=== PATIENT | male | born 1960 | race Caucasian/White ===

== ENCOUNTER 2021-02-18 20:40 | Emergency (ER) | payer OTHER, SELFPAY ==
--- NOTE | ~2021-02-18 | CT_ITS ---
EXAMINATION: CTA chest PE protocol DATE: 02/18/2021 22:35 INDICATION: Shortness of breath TECHNIQUE: Computed tomography angiography (CTA) of the chest was performed with 100 mL Omnipaque-350 intravenous contrast timed to evaluate the pulmonary arteries. Coronal maximum intensity projection 3D-reconstructions were created by the technologist. The dose-length product (DLP) was 941.67 mGy-cm. Automated exposure control and iterative reconstruction technique were employed. COMPARISON: None. FINDINGS: There is fair opacification of the pulmonary arteries. Respiratory motion artifact limits e valuation of peripheral arteries. No pulmonary embolus is identified. There is mild dependent atelect asis. No pleural effusion or pneumothorax is identified. No pathologically enlarged thoracic lymph no ni are identified. The heart size is normal. There are bridging osteophytes at multiple levels in th e spine, consistent with diffuse idiopathic skeletal hyperostosis (DISH). IMPRESSION: 1. Fair opacification of the pulmonary arteries and limited evaluation of subsegmental branches due t o respiratory motion. No pulmonary embolus identified. Reviewed, dictated and finalized at location A. IMPRESSION: 1. Fair opacification of the pulmonary arteries and limited evaluation of subse gmental branches due to respiratory motion. No pulmonary embolus identified.
--- NOTE | ~2021-02-18 | XR_ITS ---
XR chest 1V portable DATE: 02/18/2021 21:20 INDICATION: Shortness of breath TECHNIQUE: Portable AP chest on 02/18/2021 at 2116 hours COMPARISON: None FINDINGS: Examination is limited. Heart size is not likely within normal range but optimally evaluated on AP projection because of magn ification. Mild atelectasis is suggested at the lung bases. The lungs are otherwise clear. No pleural effusion o r pulmonary vascular congestion or pneumothorax. IMPRESSION: Limited examination with suggestion of mild atelectasis at the lung bases Reviewed, dictated and finalized at location A.
[2021-02-18 20:40] VITALS: BP 125/64; PULSE 76; RESP 20; TEMP 37.1; O2SAT 95
--- NOTE | 2021-02-18 20:51 | ECG_ITS ---
Measurements Intervals [place] Rate: 74 P: MT: 0 QRS: 93 QRSD: 104 T: 83 QT: 401 QTc: 446 Interpretive Statements ATRIAL FIBRILLATION RIGHT AXIS DEVIATION INCOMPLETE RIGHT BUNDLE BRANCH BLOCK DELAYED PRECORDIAL R/S TRANSITION BASELINE ARTIFACT- I, II, III, AVR, AVL, AVF, V1-V6 ABNORMAL ECG Electronically Signed On 02-19-2021 19:27:46 CDT by Jak Alvarez D.O.
[2021-02-18 21:03] VITALS: PULSE 76
[2021-02-18 21:25] LABS: Basophils Absolute Auto 0.03 K/mm3 (0.00-0.10); Basophils Percent Auto 0.3 % (0.0-1.0); Eosinophils Absolute Auto 0.02 K/mm3 (0.02-0.50); Eosinophils Percent Auto 0.2 % (1.0-6.0); Hematocrit 46.1 % (40.0-54.0); Hemoglobin 14.7 g/dL (14.0-18.0); Immature Granulocyte Absolute 0.03 K/mm3 (0.00-0.00); Immature Granulocyte Percent A 0.3 % (0.0-0.0); Lymphocytes Absolute Auto 0.63 K/mm3 (1.10-4.50); Lymphocytes Percent Auto 7.1 % (18.0-42.0); Mean Corpuscular HGB Conc 31.9 g/dL (32.0-36.0); Mean Corpuscular Hemoglobin 29.9 pg (27.0-31.0); Mean Corpuscular Volume 93.9 fL (78.0-102.0); Mean Platelet Volume 9.7 fl (8.7-11.0); Monocytes Absolute Auto 0.86 K/mm3 (0.10-0.90); Monocytes Percent Auto 9.7 % (2.0-11.0); Neutrophils Absolute Auto 7.3 K/mm3 (1.7-7.2); Neutrophils Percent Auto 82.4 % (50.0-70.0); Platelet Count Result 189 K/mm3 (150-420); Red Blood Count 4.91 M/mm3 (4.70-6.10); Red Cell Distribution Width 13.9 % (11.6-14.4); White Blood Count 8.9 K/mm3 (4.8-10.8)
[2021-02-18 21:36] LABS: INR 1.3; Partial Thromboplastin Time 29.9 SEC (23.90-30.70); Prothrombin Time 13.7 Seconds (9.50-12.10)
[2021-02-18 21:40] LABS: Alanine Aminotransferase 527 U/L (16-63); Albumin Level 3.3 g/dL (3.4-5.0); Alkaline Phosphatase 184 U/L (46-116); Anion Gap 12 mmol/L (8-16); Aspartate Amino Transferase 235 U/L (15-37); Bilirubin,Total 4.8 mg/dL (0.00-1.00); Blood Urea Nitrogen 13 mg/dL (7-18); Calcium 8.3 mg/dL (8.5-10.1); Carbon Dioxide 29 mmol/L (21-32); Chloride 102 mmol/L (98-108); Glucose 128 mg/dL (70-99); NT Pro B Type Natriuretic Pept 1300 pg/mL (0-125); Osmolality Calculated 298 mOsm/kg (285-295); Potassium 3.5 mmol/L (3.5-5.1); Sodium 143 mmol/L (136-145); Troponin I 6.2 ng/L (0.00-60.4)
[2021-02-18 21:44] LABS: Influenza Control Valid (Valid)
[2021-02-18 21:45] LABS: Magnesium 1.6 mg/dL (1.8-2.4)
[2021-02-18 21:50] LABS: SARS-CoV-2 Ag Negative (Negative)
[2021-02-18 21:53] LABS: D Dimer 0.76 mg/L (0.19-0.50)
[2021-02-18 21:54] LABS: Total Protein 7.4 g/dL (6.4-8.2)
[2021-02-18 21:56] LABS: Estimated CRCL calculation 80 ml/min; Estimated Glomerular Filt Rate 53
--- NOTE | 2021-02-18 22:13 | ED.SOB ---
HPI - SOB/Dyspnea General Chief Complaint: Shortness of Breath/Dyspnea Stated Complaint: abd pain Source: patient Mode of arrival: EMS Limitations: no limitations History of Present Illness HPI Narrative: this is a 7-year-old gentleman that presents with some shortness of breath started earlier this evening with no cough has been having some low-grade fever and chills with no nausea vomiting no chest pain or chest pressure no abdominal pain, no flank pain or dysuria. Patient has a history of CHF and history of atrial fibrillation. Patient has a history of gallstones currently not having any abdominal pain. MD elicited complaint: shortness of breath Pertinent past history: congestive heart failure and other ( AFib) Onset (ago): hour(s) Severity: moderate Exacerbating factors: lying flat Related Data Home Medications Medication Instructions Recorded Confirmed Adult One Daily Multivitamin 1 caplet BYMOUTH DAILY 02/18/21 02/18/21 atorvastatin 10 mg PO DAILY 02/18/21 02/18/21 cholecalciferol (vitamin D3) 50 mcg PO DAILY 02/18/21 02/18/21 [Vitamin D3] furosemide 80 mg PO DAILY 02/18/21 02/18/21 omega-3 fatty acids-vitamin E 1 cap PO DAILY 02/18/21 02/18/21 [Fish Oil] potassium chloride 20 meq PO DAILY 02/18/21 02/18/21 rivaroxaban [Xarelto] 20 mg PO DAILY 02/18/21 02/18/21 verapamil 240 mg PO BID 02/18/21 02/18/21 Review of Systems Review of Systems: All systems reviewed & are unremarkable except as noted in HPI and below PMFSH Past Medical History Medical History Afib CHF (congestive heart failure) HTN (hypertension) Exam Const: General: no acute distress Orientation/consciousness: patient oriented x3 HENMT: Head: normal to inspection Eyes: Conjunctivae: conjunctivae normal Pupils: Equal, round and reactive pupils present EOM: EOMs intact bilaterally Neck: Neck: normal visual inspection, no lymphadenopathy and no meningeal signs Chest: Chest palpation & inspection: normal inspection of the chest Resp: Effort & Inspection: normal respiratory effort Auscultation: clear to auscultation bilaterally Cardio: Rate: regular rate Rhythm: abnormal rhythm GI: GI Palp: Yes Soft to palpation and Yes Tenderness to palpation present (GI) : Testes: Testes normal Back/Spine/Pelvis: Back: no CVA tenderness Skin: General skin exam: normal color Rashes: no rashes Neuro: General: patient oriented x3, moves all extremities, no meningeal signs and no focal motor deficits Extrem: General: normal to inspection and edema Psych: Mental Status: mental status grossly normal Affect: normal affect Course Course Emergency Course: x-ray and labs reviewed with patient Vital Signs Vital signs: Vital Signs Temperature 37.1 C 02/18/21 20:40 Pulse Rate 76 02/18/21 20:40 Respiratory Rate 20 02/18/21 20:40 Blood Pressure 125/64 02/18/21 20:40 Pulse Oximetry 95 02/18/21 20:40 Temperature 37.1 C 02/18/21 20:40 Pulse Rate 76 02/18/21 21:03 Respiratory Rate 02/18/21 20:40 Blood Pressure 125/64 02/18/21 20:40 Pulse Oximetry 95 02/18/21 20:40 MDM - SOB/Dyspnea Lab Data Result diagrams: 02/18/21 21:15 02/18/21 21:15 Labs: Lab Results 02/18/21 02/18/21 02/18/21 Range/Units 21:15 21:15 21:15 WBC 8.9 (4.8-10.8) K/mm3 RBC 4.91 (4.70-6.10) M/mm3 Hgb 14.7 (14.0-18.0) g/dL Hct 46.1 (40.0-54.0) % MCV 93.9 (78.0-102.0) fL MCH 29.9 (27.0-31.0) pg MCHC 31.9 L (32.0-36.0) g/dL RDW 13.9 (11.6-14.4) % Plt Count 189 (150-420) K/mm3 MPV 9.7 (8.7-11.0) fl Immature Gran % (Auto) 0.3 H (0.0-0.0) % Neut % (Auto) 82.4 H (50.0-70.0) % Lymph % (Auto) 7.1 L (18.0-42.0) % Brown % (Auto) 9.7 (2.0-11.0) % Eos % (Auto) 0.2 L (1.0-6.0) % Baso % (Auto) 0.3 (0.0-1.0) % Lymph # (Auto) 0.63 L (1.10-4.50) K/mm3 Brown # (Auto) 0.86
[2021-02-18 22:48] VITALS: BP 131/62; PULSE 68; RESP 20; O2SAT 95
[2021-02-18] MEDS: FUROSEMIDE INJ 40 MG/4 ML VIAL IV PUSH (23:00)
[2021-02-18 23:18] LABS: Add Urine Microscopic? YES; Appearance Urine Clear (Clear); Bilirubin Urine 1+ (Negative); Blood Urine Negative (Negative); Color Urine Yellow (Yellow); Glucose Urine UA Negative (Negative); Ketones Urine Negative (Negative); Leukocyte Esterase Ur Negative LEU/UL (Negative); Nitrate Urine Negative (Negative); Protein Urine Negative (Negative); Specific Grav Ur 1.015 (1.010-1.020); Urobilinogen Urine 0.2 mg/dL (0.2-1.0); pH Urine 5.5 (5.0-8.0)
[2021-02-18 23:23] LABS: RBC Urine None seen /hpf (0-2); WBC Urine None seen /hpf (0-3)
[2021-02-18 23:24] LABS: Squamous Epithelial Cell Urine None seen /hpf (Few)
[2021-02-19 00:07] VITALS: BP 151/86; PULSE 87; RESP 20; TEMP 36.9; O2SAT 92
[2021-02-19 00:59] VITALS: BP 144/76; PULSE 88; RESP 20; TEMP 36.9; O2SAT 94
--- NOTE | 2021-02-19 01:32 | PC.NURSE ---
called [facility] for transport back to residence. per smaantha unavailable to transport pt.
--- NOTE | 2021-02-19 01:57 | PC.NURSE ---
pt brother barrett returned call will be enroute to roller picker pt from [facility]. awaiting arrival
--- NOTE | 2021-02-19 02:56 | PC.NURSE ---
pt brother here for slat pickler. pt assisted into personal vehicle per this advertising writer. pt stable and alert. able to reposition self into truck.
== END 2021-02-19 01:20 | disposition home or self-care (01) ==
PROVIDERS: Emergency Provider Emergency Medicine
DX: I50.9 Heart failure, unspecified (principal); Z20.822 Contact with and (suspected) exposure to COVID-19
CPT/HCPCS: 36415; 71045; 71275; 80053; 81001; 83735; 83880; 84484; 85025; 85380; 85610; 85730; 87040; 87077; 87186; 87426; 87804; 93005; 96374; 99283; 99284; C9803; J1940; Q9967

== ENCOUNTER 2021-08-11 09:43 | Outpatient (CLI) | payer OTHER, SELFPAY ==
--- NOTE | ~2021-08-11 | XR_ITS ---
EXAMINATION: XR hand RT min 3V INDICATION: Right hand pain TECHNIQUE: Three views of the right hand are obtained. COMPARISON: None available FINDINGS: Bone alignment is normal. There is no fracture. There is mild osteoarthritis of multiple in terphalangeal joints and at the third metacarpophalangeal joint. The soft tissues are unremarkable. IMPRESSION: 1. Mild polyarticular osteoarthritis. Reviewed, dictated and finalized at location B. RNATIONAL MARKETING MANAGER
--- NOTE | ~2021-08-11 | XR_ITS ---
EXAMINATION: XR hand LT min 3V INDICATION: Left hand pain TECHNIQUE: Three views of the left hand are obtained. COMPARISON: None available FINDINGS: Bone alignment is normal. There is no fracture. There is mild osteoarthritis of multiple in terphalangeal joints. The soft tissues are unremarkable. IMPRESSION: 1. Mild polyarticular osteoarthritis. Reviewed, dictated and finalized at location B. UCT APPLICATIONS SCIENTIST
--- NOTE | ~2021-08-11 | XR_ITS ---
EXAMINATION: XR knee LT 3V DATE: 08/11/2021 10:34 INDICATION: Chronic left knee pain. TECHNIQUE: 3 views of left knee were obtained. COMPARISON: None. FINDINGS: There is lateral subluxation of patella. No fracture. There is severe osteoarthritis of med ial compartment, moderate osteoarthritis of patellofemoral compartment, and mild osteoarthritis of la teral compartment. No knee joint effusion. IMPRESSION: 1. Severe left knee osteoarthritis. Reviewed, dictated and finalized at location A. E BENDER FURNACE TENDER
--- NOTE | ~2021-08-11 | XR_ITS ---
EXAMINATION: XR knee RT 3V DATE: 08/11/2021 10:35 INDICATION: Chronic right knee pain. TECHNIQUE: 3 views of right knee were obtained. COMPARISON: None. FINDINGS: There is lateral subluxation of patella. No fracture. There is moderate osteoarthritis of m edial and patellofemoral compartments and mild osteoarthritis of lateral compartment. No knee joint e ffusion. IMPRESSION: 1. Moderate right knee osteoarthritis. Reviewed, dictated and finalized at location A. IANCE TECHNICIAN
[2021-08-11 10:53] LABS: Anion Gap 10 mmol/L (8-16); Blood Urea Nitrogen 20 mg/dL (7-18); Calcium 8.9 mg/dL (8.5-10.1); Carbon Dioxide 30 mmol/L (21-32); Chloride 104 mmol/L (98-108); Estimated Glomerular Filt Rate > 60; Glucose 117 mg/dL (70-99); Osmolality Calculated 301 mOsm/kg (285-295); Sodium 144 mmol/L (136-145)
== END 2021-08-11 09:44 | disposition home or self-care (01) ==
LOC: CHSLAB 09:47
PROVIDERS: PCP Nurse Practitioner; Visit Provider Internal Medicine Cardiovascular Disease
DX: Z79.899 Other long term (current) drug therapy (principal); M79.642 Pain in left hand; M79.641 Pain in right hand; M25.562 Pain in left knee; M25.561 Pain in right knee
CPT/HCPCS: 36415; 73130; 73562; 80048

== ENCOUNTER 2023-10-14 11:53 | Emergency (ER) | payer OTHER, SELFPAY ==
[2023-10-14 11:53] VITALS: BP 132/60; PULSE 76; RESP 18; TEMP 36.2; O2SAT 95
--- NOTE | 2023-10-14 12:50 | ED.GENADULT ---
HPI - General Adult General Chief complaint: Wound/Laceration Stated complaint: wound to right foot Time Seen by Provider: 10/14/23 12:15 History of Present Illness HPI narrative: The patient is a 63-year-old male with history of atrial fibrillation on Xarelto, congestive heart failure on Lasix 80 mg daily with chronic pedal edema and chronic venous stasis changes in the lower extremities, obesity weight 199 kg, hypertension, and hyperlipidemia. He is allergic to penicillin. He does not smoke cigarettes or use alcohol or drugs. The patient has had a right lower knight upper ankle wound that he has been dealing with for some time which has subsequently healed. He had a dressing on another wound on the right lower extremity, at the medial malleolus. The wound that healed. He was taken the dressing off and then the dorsum of the skin. He has some erythema in the area. No tenderness. No drainage from the wound. No other complaints. No fevers or chills or diaphoresis or rhinorrhea or nasal congestion or sore throat or chest pain or abdominal pain or nausea or vomiting or urinary symptoms such as urgency frequency dysuria or hematuria. No diarrhea or constipation. No other complaints. He is concerned about his wound and reduce requesting antibiotics to prevent a wound infection. Related Data Home Medications Medication Instructions Recorded Confirmed Adult One Daily Multivitamin 1 caplet BYMOUTH DAILY 02/18/21 10/14/23 atorvastatin 10 mg tablet 10 mg PO DAILY 02/18/21 10/14/23 cholecalciferol (vitamin D3) 50 50 mcg PO DAILY 02/18/21 10/14/23 mcg (2,000 unit) capsule (Vitamin D3) furosemide 80 mg tablet 80 mg PO DAILY 02/18/21 10/14/23 omega-3 fatty acids-vitamin E 1 cap PO DAILY 02/18/21 10/14/23 1,000 mg capsule potassium chloride 20 mEq 20 meq PO DAILY 02/18/21 10/14/23 tablet,extended release(part/cryst) rivaroxaban 20 mg tablet (Xarelto) 20 mg PO DAILY 02/18/21 10/14/23 verapamil 240 mg tablet,extended 240 mg PO BID 02/18/21 10/14/23 release losartan 50 mg tablet 50 mg DAILY 10/14/23 10/14/23 Allergies Allergy/AdvReac Type Severity Reaction Status Date / Time Penicillins Allergy Unknown Verified 10/14/23 12:04 Review of Systems Review of Systems: All systems reviewed & are unremarkable except as noted in HPI and below Constitutional: Constitutional: Denies chills, Denies excessive sweating, Denies fatigue, Denies fever(s), Denies headache(s) and Denies weakness Eyes: Eyes: Denies change in vision and Denies photophobia ENT: Denies dysphagia, Denies dizziness, Denies headache(s), Denies lip swelling, Denies nasal congestion, Denies sore throat and Denies tongue swelling Cardiovascular: Cardiovascular: Denies chest pain, Denies syncope, Denies rapid heart rate and Denies dyspnea Respiratory: Respiratory: Denies cough, Denies dyspnea and Denies wheezing Gastrointestinal: Gastrointestinal: Denies abdominal pain, Denies constipation, Denies dysphagia, Denies diarrhea, Denies nausea and Denies vomiting Genitourinary: Genitourinary: Denies hematuria, Denies dysuria, Denies urinary frequency and Denies urinary urgency Musculoskeletal: Musculoskeletal: Denies back pain, Denies myalgias, Denies arthralgias, Denies joint swelling and Denies numbness Comments: pedal edema with chronic venous stasis changes present Integumentary/Breasts: Skin/Breast: Denies pruritus, Reports erythema ( Right medial malleolus wound) and Denies rash Neurologic: Denies confusion, Denies dizziness, Denies syncope, Denies headache(s), Denies focal weakness, Denies numbness and Denies weakness Psychiatric: Psychiatric: Denies anxiety and Denies confusion Endocrine: Endocrine: Denies excessive sweating and Denies fatigue Hematologic/Lymphatic: Hematologic/Lymphatic: Denies easy bleeding and Denies easy bruising Allergic/Immunologic: Allergic/Immunologic: Denies lip swelling, Denies tongue swelling and Denies wheezing PM
[2023-10-14] MEDS: SULFAMETHOXAZOLE/TRIMETHOPRIM 800/160 MG DS TABLET 1 TAB PO (13:15)
[2023-10-14] MEDS: NEOMYCIN/POLYMYXIN/BACITRACIN OINTMENT 15 GM TUBE 1 APPLIC TOPICAL (13:16)
== END 2023-10-14 13:37 | disposition home or self-care (01) ==
PROVIDERS: Emergency Provider Emergency Medicine
DX: L03.115 Cellulitis of right lower limb (principal); L30.8 Other specified dermatitis; I87.2 Venous insufficiency (chronic) (peripheral); R60.9 Edema, unspecified; I48.91 Unspecified atrial fibrillation; Z79.01 Long term (current) use of anticoagulants; I50.9 Heart failure, unspecified; E66.9 Obesity, unspecified; Z68.44 Body mass index [BMI] 60.0-69.9, adult; E78.5 Hyperlipidemia, unspecified; I11.0 Hypertensive heart disease with heart failure
CPT/HCPCS: 99283; A9270

== ENCOUNTER 2024-10-07 09:10 | Emergency (ER) | payer OTHER, SELFPAY ==
[2024-10-07 09:10] VITALS: BP 141/89; PULSE 68; RESP 20; TEMP 36.3; O2SAT 98
--- NOTE | 2024-10-07 09:25 | ED.WOUNDLAC ---
HPI - Wound/Laceration General Chief Complaint: Wound/Laceration Stated Complaint: wound to right leg Time Seen by Provider: 10/07/24 09:25 Source: patient Mode of arrival: ambulatory Limitations: no limitations History of Present Illness HPI narrative: 64-year-old male with a history of dyslipidemia, elevated LFTs, CKD,hypertension, AFib, CHF, lymphedema and recurrent cellulitis presents to the ED with a 3 day history of -- right lateral like cellulitis. it is painful with minimal drainage. It started as a small sore . currently it is erythematous over in an area of 10 cmX 5 cm no fever or chills Onset (ago): day(s) ( 3 days) Extremity Location: Right: lower leg Body four view annotation:  1. 10 cms X 5 cms area of erythema/ tenderness with drainage from the center. The drainage is clear Place: home Context: other ( started spontaneously as a sore and gradually spread) Associated symptoms: pain Related Data Home Medications ?Medication ?Instructions ?Recorded ?Confirmed ?Last Taken ?Type Adult One Daily Multivitamin 1 caplet BYMOUTH DAILY 02/18/21 10/14/23 Unknown History atorvastatin 10 mg tablet 10 mg PO DAILY 02/18/21 10/14/23 Unknown History cholecalciferol (vitamin D3) 50 50 mcg PO DAILY 02/18/21 10/14/23 Unknown History mcg (2,000 unit) capsule (Vitamin D3) furosemide 80 mg tablet 80 mg PO DAILY 02/18/21 10/14/23 Unknown History omega-3 fatty acids-vitamin E 1 cap PO DAILY 02/18/21 10/14/23 Unknown History 1,000 mg capsule potassium chloride 20 mEq 20 meq PO DAILY 02/18/21 10/14/23 Unknown History tablet,extended release(part/cryst) rivaroxaban 20 mg tablet (Xarelto) 20 mg PO DAILY 02/18/21 10/14/23 Unknown History verapamil 240 mg tablet,extended 240 mg PO BID 02/18/21 10/14/23 Unknown History release losartan 50 mg tablet 50 mg DAILY 10/14/23 10/14/23 Unknown History Allergies Allergy/AdvReac Type Severity Reaction Status Date / Time Penicillins Allergy Unknown Verified 10/14/23 12:04 Review of Systems Constitutional: Constitutional: Reports as per HPI and Reports no additional constitutional complaints Eyes: Eyes: Reports as per HPI and Reports no additional eye complaints ENT: Reports system reviewed and no additional complaints, except as documented and Reports as per HPI Comments: hard of hearing Cardiovascular: Cardiovascular: Reports as per HPI and Reports no additional cardiovascular complaints Respiratory: Respiratory: Reports as per HPI and Reports no additional respiratory complaints Gastrointestinal: Gastrointestinal: Reports as per HPI and Reports no additional gastrointestinal complaints Genitourinary: Genitourinary: Reports no additional male genitourinary complaints and Reports as per HPI Musculoskeletal: Musculoskeletal: Reports no additional musculoskeletal complaints and Reports as per HPI Integumentary/Breasts: Comments: right lateral leg cellulitis Neurologic: Reports system reviewed and no additional complaints, except as documented and Reports as per HPI Psychiatric: Psychiatric: Reports no additional psychiatric complaints and Reports as per HPI Endocrine: Endocrine: Reports no additional endocrine complaints and Reports as per HPI Hematologic/Lymphatic: Hematologic/Lymphatic: Reports no additional hematologic/lymphatic complaints and Reports as per HPI Allergic/Immunologic: Allergic/Immunologic: Reports no additional allergic/immunologic complaints and Reports as per HPI [facility] Past Medical History Medical History HTN (hypertension) CHF (congestive heart failure) Afib Exam Narrative: afebrile Const: General: no acute distress Nutritional Appearance: obese Orientation/consciousness: patient oriented x3 Limitations: no limitations HENMT: Head: normal to inspection Ears: external ears normal Face/Nose/Sinus: Normal external nose present Face and sinus: normal facial exam Mouth: Yes Normal oral and palatal mucosa present Throat: posterior oropharynx normal Eyes: Conjunctivae: conjunctivae normal Pupils: Equal, round and reactive pupils present EOM: EOMs intact bilaterally Direct Ophthalmoscopy: no photophobia Neck: Neck: normal visual inspection, no lymphadenopathy and no meningeal signs Chest: Chest palpation & inspection: normal inspection of the chest Resp: Effort & Inspection: normal respiratory effort Auscultation: clear to auscultation bilaterally Cardio: Rate: regular rate Rhythm: regular rhythm GI: GI Palp: Yes Soft to palpation Auscultation: normal bowel sounds Other: no tenderness/rigidity /rebound Back/Spine/Pelvis: Back: no CVA tenderness Skin: General skin exam: normal color Other: right lateral leg has erythema measuring 10X5 cms . tender on palpation. Watery discharge from the center of erythema Neuro: General: patient oriented x3, moves all extremities, no meningeal signs, no focal motor deficits and CN's II-XI intact bilaterally Cranial nerves: Yes Nystagmus not present Speech: normal speech Extrem: Other: bilateral leg edema with lymphedema. Chronic venous stasis changes on both anterior legs. Psych: Mental Status: mental status grossly normal Affect: normal affect Attitude: cooperative Course Course Emergency Course: Lymphedema both lower extremities cellulitis right lateral leg-- blood work is unremarkable. Normal blood sugar. Normal white cell count. Vital Signs Vital signs: Vital Signs Temperature 36.3 C L 10/07/24 09:10 Pulse Rate 68 10/07/24 09:10 Respiratory Rate 20 10/07/24 09:10 Blood Pressure 141/89 H 10/07/24 09:10 Pulse Oximetry 98 10/07/24 09:10 Oxygen Delivery Room Air 10/07/24 09:10 Temperature 36.3 C L 10/07/24 09:10 Pulse Rate 80 10/07/24 09:35 Respiratory Rate 18 10/07/24 09:35 Blood Pressure 111/76 10/07/24 09:35 Pulse Oximetry 95 10/07/24 09:35 Oxygen Delivery Room Air 10/07/24 09:35 MDM - Wound/Laceration MDM Narrative Medical decision making narrative: Lymphedema both legs right leg cellulitis Differential Diagnosis Differential diagnosis: Likely abscess Medical Records Attestation: I reviewed the patient's medical records. Lab Data Attestation: I reviewed the patient's lab results. 10/07/24 09:42 10/07/24 09:42 Labs: Lab Results 10/07/24 Range/Units 09:42 WBC 6.7 (4.8-10.8) K/mm3 RBC 4.76 (4.70-6.10) M/mm3 Hgb 13.5 L (14.0-18.0) g/dL Hct 44.7 (40.0-54.0) % MCV 93.9 (78.0-102.0) fL MCH 28.4 (27.0-31.0) pg MCHC 30.2 L (32-36) g/dL RDW 13.7 (11.6-14.4) % Plt Count 123 L (150-420) K/mm3 MPV 10.5 (8.7-11.0) fl Immature Gran % (Auto) 0.5 H (0.0-0.0) % Neut % (Auto) 70.6 H (50.0-70.0) % Lymph % (Auto) 18.2 (18.0-42.0) % Lamar % (Auto) 8.4 (2.0-11.0) % Eos % (Auto) 1.7 (1.0-6.0) % Baso % (Auto) 0.6 (0.0-1.0) % Lymph # (Auto) 1.21 (1.10-4.50) K/mm3 Lamar # (Auto) 0.56 (0.10-0.90) K/mm3 Eos # (Auto) 0.11 (0.02-0.50) K/mm3 Baso # (Auto) 0.04 (0.00-0.10) K/mm3 Abs Immat Gran (auto) 0.03 H (0.00-0.00) K/mm3 Absolute Neuts (auto) 4.70 (1.70-7.20) K/mm3 Absolute Nucleated RBC 0.00 (0.00-0.00) K/mm3 Nucleated RBC % 0.0 (0-0.0) % % Immature Plt Fraction 10.2 H (1.0-7.0) % Sodium 140 (136-145) mmol/L Potassium 3.6 (3.5-5.1) mmol/L Chloride 102 (98-108) mmol/L Carbon Dioxide 31 (21-32) mmol/L Anion Gap 7 (4-12) mmol/L BUN 16 (7-18) mg/dL Creatinine 1.05 (0.70-1.30) mg/dL Estim Creat Clear Calc 104 ml/min Estimated GFR > 60 (59 - ) Glucose 125 H (70-99) mg/dL Calculated Osmolality 292 (285-295) mOsm/kg Lactic Acid 1.8 (0.4-2.0) mmol/L Calcium 9.0 (8.5-10.1) mg/dL Total Bilirubin 0.7 (0.00-1.00) mg/dL AST 15 (15-37) U/L ALT 19 (16-63) U/L Alkaline Phosphatase 74 (46-116) U/L NT-Pro-B Natriuret Pep 426 H (0-125) pg/mL Total Protein Pending Albumin 3.3 L (3.4-5.0) g/dL Discharge Plan Discharge Clinical Impression: Cellulitis Qualifiers: Site of cellulitis: extremity Site of cellulitis of extremity: lower extremity Laterality: right Qualified Code(s): L03.115 - Cellulitis of right lower limb Patient Disposition: Home Condition: Stable Instructions: Antibiotic Form, Cellulitis (ED) Patient Language: [place] Prescriptions: New sulfamethoxazole-trimethoprim [Bactrim DS] 800-160 mg tablet 1 tablet PO Q12H Qty: 14 0RF No Action losartan 50 mg tablet 50 mg DAILY sulfamethoxazole-trimethoprim [Bactrim DS] 800-160 mg tablet 1 tablet PO Q12H 10 Days Qty: 20 0RF Adult One Daily Multivitamin 1 caplet BYMOUTH DAILY atorvastatin 10 mg tablet 10 mg PO DAILY potassium chloride 20 mEq tablet,ER particles/crystals 20 meq PO DAILY furosemide 80 mg tablet 80 mg PO DAILY verapamil 240 mg tablet extended release 240 mg PO BID Fish Oil 1,000 mg Capsule 1 cap PO DAILY cholecalciferol (vitamin D3) [Vitamin D3] 50 mcg (2,000 unit) Capsule 50 mcg PO DAILY Xarelto 20 mg tablet 20 mg PO DAILY Follow-up/Referrals: UNKNOWN,DOCTOR [Primary Care Provider] - Time of Disposition: 10:44
[2024-10-07 09:35] VITALS: BP 111/76; PULSE 80; RESP 18; O2SAT 95
--- OUTSIDE RECORDS SUMMARY | 2024-10-07 09:38 | XMS_ITS | Encounter Summary ---
Author Organization [facility] Address [address] [place] [address] Care Team Providers Care Account Adjuster Name Role Phone Jen Good APRN, NP-C Unavailable [phone] Lola Brewer MD Unavailable Montana Richards NP Primary Care Provider [phone] Encounter Details Date Type Department Care Team (Late st Contact Info) Description 03/24/2024 Empowered Careers Message [facility] [address] [place] [address] [facility] Results Social History Tobacco Use Types Packs/Day Years Used Date Smoking Tobacco: Never Smokeless Tobacco: Never Alcohol Use Standard Drinks/Week Comments No 0 (1 standard drink = 0.6 oz pur e alcohol) OASIS D0700: Social Isolation Answer Da te Recorded Frequency of experiencing loneliness or isolatio n Never 09/20/2023 OASIS A1250: Transportation Answer Date Recorded Lack of Transportation (Medical) No 09/20/2023 Lack of Transportation (Non-Medical) No 09/20/2023 Patient Unable or Declines to Respond No 09/20/2023 OASIS B1300: Health Literacy Answer Rayo e Recorded Frequency of needing help to read materials from doctor or pharmacy Never 09/20/2023 AUDIT-C Answer Date Recorded Frequency of Alcohol Consumption Never 10/05/2019 Average Number of Drinks Not on file 020 Frequency of Binge Drinking Not on file 09/2019 Sex and Gender Information Value Date Recorded Sex Assigned at Not on file Legal Sex Male 8:47 PM CDT Gender Identity Male 07/24/2021 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 Sexual Orientation Not on file documented as of this encounter Plan of Treatment Not on file documented as of this encounter Visit Diagnoses Not on filedocumented in this encounter Care Teams Account Adjuster Relationship Specialty Start Date End Date Montana Richards, TUMBLING BARREL PAINTER [address] [place] [address] PCP - General NURSE PRACTITIONER 12/04/23 Jen Good, ETTA, TUMBLING BARREL PAINTER-C [address] [facility] [address] [place] [address] Advanced Practice Provider CARDIOLOGY 08/27/23 Lola Brewer MD [address] [place] [address] Consulting Physician CARDIOVASCULAR DISEASE 11/25/23 documented as of this encounter
--- OUTSIDE RECORDS SUMMARY | 2024-10-07 09:39 | XMS_ITS | Encounter Summary ---
Author Organization [facility] Address [address] [place] [address] Care Team Providers Care Open Shank Coverer Name Role Phone Doug Carrasco MD Primary Care Provider [phone] Gino Mena MD Unavailable [phone] Lisa Murillo BIOMETRICS INSTRUCTOR- Primary Care Provider [phone] Deysi Rosa NP Primary Care Provider [phone] Jen Good APRN, NP-C Unavailable [phone] Lola Brewer MD Unavailable Montana Richards POCKET FLAP CREASING MACHINE OPERATOR Primary Care Provider [phone] Encounter Details Date Type Department Care Team (Late st Contact Info) Description 01/25/2016 Abstract [facility] [address] [place] [address] Gino Mena MD [address] [place] [address] Social History Tobacco Use Types Packs/Day Years Used Date Smoking Tobacco: Never Sex and Gender Information Value Date Recorded Sex Assigned at Not on file Legal Sex Male 8:47 PM CDT Gender Identity Male 07/24/2021 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 Sexual Orientation Not on file documented as of this encounter Plan of Treatment Not on file documented as of this encounter Visit Diagnoses Not on filedocumented in this encounter Care Teams Open Shank Coverer Relationship Specialty Start Date End Date Doug Carrasco MD PCP - General INTERNAL MEDICINE 12/29/15 10/04/19 Lisa Murillo BIOMETRICS INSTRUCTOR- [address] [place] [address] PCP - General NURSE PRACTITIONER 10/05/19 08/26/23 Deysi Rosa NP [address] [facility] [address] [place] [phone] PCP - General NURSE PRACTITIONER 08/27/23 12/03/23 Montana Richards NP [address] [place] [address] PCP - General NURSE PRACTITIONER 12/04/23 Gino Mena MD [address] [place] [address] [facility] Provider CARDIOVASCULAR DISEASE 12/29/15 11/24/23 Jen Good, LABORER MINE, POCKET FLAP CREASING MACHINE OPERATOR-C [address] [facility] [address] [place] [phone] Advanced Practice Provider CARDIOLOGY 08/27/23 Lola Brewer MD [address] [place] [address] Consulting Physician CARDIOVASCULAR DISEASE 11/25/23 documented as of this encounter
--- OUTSIDE RECORDS SUMMARY | 2024-10-07 09:39 | XMS_ITS ---
Author Organization [facility] Address [address] [place] [address] Care Team Providers Care Cigar Packing Examiner Name Role Phone BRIGIDA YE Unavailable [phone] Encounters Encounter Location Date Provider Diagnosis [address] [address] 08/14/2024 BRIGIDA YE Plan Of Treatment No Information Progress Notes * MATTHEW HINDS ADOB:1960 (64 yo M)Acc No.[id number]:08/14/2024 Patient: Edmund LAVONMATTHEW Provider: Shelton Ye DPM :1960 A ge:64 Y S ex:Male Date:08/14/2024 Address:[facility] Subjective: * Chief Complaints: * * Medical History: Objective: * Vitals: Assessment: Plan: * Treatment: * Billing Information: * Visit Code: * Procedure Codes: * Electronic signature of MARKO YE DPM on 10/07/2024 at 09:39 AM CDT Sign off status: Pending * Provider: Shelton Ye DPM Date: 08/14/2024 Generated for Grayson holland/Darwin/Jose Alberto on: 10/07/2024 09:39 AM CDT
--- OUTSIDE RECORDS SUMMARY | 2024-10-07 09:39 | XMS_ITS | Encounter Summary ---
Author Organization [facility] Address [facility] [place] [address] Care Team Providers Care Baby Sitter Name Role Phone Doug Carrasco MD Primary Care Provider [phone] Gino Mena MD Unavailable [phone] Lisa Murillo MILLWRIGHT SUPERVISOR- Primary Care Provider [phone] Deysi Rosa NP Primary Care Provider [phone] Jen Good APRN, NP-C Unavailable [phone] Lola Brewer MD Unavailable Montana Richards MAMMOGRAPHY TECHNOLOGIST Primary Care Provider [phone] Encounter Details Date Type Department Care Team (Late st Contact Info) Description 12/27/2015 Abstract [facility] [address] [place] [address] Abstract, Doc [facility] Social History Tobacco Use Types Packs/Day Years Used Date Smoking Tobacco: Never Sex and Gender Information Value Date Recorded Sex Assigned at Not on file Legal Sex Male 8:47 PM CDT Gender Identity Male 07/24/2021 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 Sexual Orientation Not on file documented as of this encounter Plan of Treatment Not on file documented as of this encounter Visit Diagnoses Not on filedocumented in this encounter Care Teams Baby Sitter Relationship Specialty Start Date End Date Doug Carrasco MD PCP - General INTERNAL MEDICINE 12/29/15 10/04/19 Lisa Murillo FNP- [address] [place] [address] PCP - General NURSE PRACTITIONER 10/05/19 08/26/23 Deysi Rosa NP [address] [facility] [address] [place] [phone] PCP - General NURSE PRACTITIONER 08/27/23 12/03/23 Montana Richards NP [address] [place] [address] PCP - General NURSE PRACTITIONER 12/04/23 Gino Mena MD [address] [place] [phone] [place] Skip Hoist Operator CARDIOVASCULAR DISEASE 12/29/15 11/24/23 Jen Good APRN, MAMMOGRAPHY TECHNOLOGIST-C [address] [facility] [address] [place] [address] Advanced Practice Provider CARDIOLOGY 08/27/23 Lola Brewer MD [address] [place] [address] Consulting Physician CARDIOVASCULAR DISEASE 11/25/23 documented as of this encounter
--- OUTSIDE RECORDS SUMMARY | 2024-10-07 09:39 | XMS_ITS | Clinical Summary ---
Author Organization [facility] Address [address] [place] [address] Care Team Providers Care Floor Manager Name Role Phone Jen Good APRN, NP-C Unavailable [phone] Lola Brewer MD Unavailable Montana Richards NP Primary Care Provider [phone] Allergies Active Allergy Reactions Criticality Noted Date Comments Penicillins Unknown 12/01/2015 Solidago (Langley Nicolás) Unknown 12/27/2015 Medications verapamil 240 MG 24 hr capsuleIndicatio ns:Hypertension Take 1 tablet by mouth 2 (two) times a day. Indications: High Blood Pressure Disorder 4 Active atorvastatin 10 MG tabletIndication s:Hyperlipidemia Take 1 tablet (10 mg total) by mouth daily. 30 tablet 9 Active losartan 50 MG tabletIndication s:Hypertension Take 1 tablet (50 mg total) by mouth daily. 30 tablet 9 Active Multiple Vitamins-Mineral s (MULTIVITAMIN ADULTS OR)Indications:s upplement Take 1 tablet by mouth. Indications: supplement Active fish oil 1000 MG Cap capsuleIndicatio ns:heart health Take 1,000 mg by mouth daily. Indications: heart health Active FUROSEMIDE 80 MG tabletIndication s:Heart Failure TAKE ONE TABLET BY MOUTH DAILY 30 tablet 1 Active potassium chloride CR 20 MEQ tabletIndication s:supplement Take 1 tablet (20 mEq total) by mouth 2 (two) times daily. Indications: supplement Active Cholecalciferol (VITAMIN D) 50 MCG (1999) TabIndications:s upplement Take 1 tablet by mouth daily. Indications: supplement Active cephALEXin (KEFLEX) 500 MG capsuleIndicatio ns:Cellulitis Take 1 capsule by mouth 3 (three) times daily. Indications: Infection Under the Skin X 7 days 4 Active rivaroxaban (XARELTO) 20 MG Tab tabletIndication s:Atrial Fibrillation Take 1 tablet (20 mg total) by mouth daily with supper. Indications: Atrial Fibrillation Take with food 90 tablet 3 4 Active Active Problems Problem Noted Date Diagnosed Date Mixed hyperlipidemia 07/03/2018 Depression 07/03/2018 Chronic diastolic congestive heart failure ([facility]) 01/14/2016 Atrial fibrillation and flutter ([facility] ) 01/14/2016 Essential hypertension 01/14/2016 Obstructive sleep apnea syndrome 01/14/2016 Obesity 01/14/2016 Encounters Date Type Department Care Team Description 08/21/2024 Orders Only [facility] [address] [place] [address] Lola Brewer MD 08/21/2024 Orders Only [facility] [address] [place] [address] Lola Brewer MD from Last 3 Months Family History Medical History Relation Comments Coronary artery disease Brother Hypertension Mother Relation Status Comments Brother Alive Mother Social History Tobacco Use Types Packs/Day Years [...] CDT Gender Identity Male 07/24/2021 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 Sexual Orientation Not on file Last Filed Vital Signs Vital Sign Reading Time Taken Comments Blood Pressure 124/90 01/24/2024 2:57 PM CDT Pulse 90 01/24/2024 2:57 PM CDT Temperature 36.8 C (98.3 F) 09/20/2023 9:22 AM CDT Respiratory Rate 20 01/24/2024 2:57 PM CDT Oxygen Saturation 95% 01/24/2024 2:57 PM CDT Inhaled Oxygen Concentration - - Weight 202.3 kg (446 lb) 01/24/2024 2:57 PM CDT Height 172.7 cm (5' 8 ) 01/24/2024 2:57 PM CDT Body Mass Index 67.81 01/24/2024 2:57 PM CDT Plan of Treatment Health Maintenance Due Date Last Done Comments Colorectal Cancer Screening Colonoscopy (10 Years) 1960 Annual Physical 01/28/1964 Hepatitis C 1979 DTaP, Tdap and Td Vaccines ( 1 - Tdap) 01/28/1980 Pneumococcal Vaccine: 50+ Ye ars (1 of 2 - PCV) 01/28/1980 Zoster Vaccines (1 of 2) 2011 RSV Immunization or 60+ Years (1 - Risk 60-74 years 1-dose series) 2021 COVID-19 Vaccine (1 - 2023-2 5 season) 2024 Meningococcal B Vaccine Aged Out No l onger eligible based on patient's age to complete this topic Meningococcal Vaccine Aged Out No weston rashid eligible based on patient's age to complete this topic RSV Immunizations Under 20 Months Aged Out No longer eligible based on patient's age to complete this topic Insurance [employer]ET[employer] Advance Directives * Full Code (Latest Code Status on File) Date Activated Date Inactivated Comments 09/09/2023 11:19 AM * Full Code Date Activated Date Inactivated Comments 09/08/2023 3:02 PM 09/09/2023 11:05 AM Care Teams Floor Manager Relationship Specialty Start Date End Date Montana Richards FORMING PRESS OPERATOR [address] [place] [address] PCP - General NURSE PRACTITIONER 12/04/23 Jen Good, MACHINE BUILDER, FORMING PRESS OPERATOR-C [address] [facility] [address] [place] [address] Advanced Practice Provider CARDIOLOGY 08/27/23 Lola Brewer MD [address] [place] [address] Consulting Physician CARDIOVASCULAR DISEASE 11/25/23
--- OUTSIDE RECORDS SUMMARY | 2024-10-07 09:39 | XMS_ITS | Patient Health Record ---
Author Organization [facility] Address [address] [place] [address] Care Team Providers Care President Finance Company Name Role Phone BRIGIDA YE Unavailable [phone] Allergies No Known Allergies Reason For Referral No Information Medications Medication SIG (Take, Route, Frequency, Duration) Notes Start Date End Date Status Losartan Potassium 50 MG Oral for 30 Days Active Verapamil HCl ER 240 MG Oral for 30 Days Active Xarelto 20 MG Oral for 30 Days Active Furosemide 80 MG Oral for 30 Days Active Atorvastatin Calcium 10 MG Oral for 30 Days Active Potassium Chloride Heidi ER 20 MEQ Oral for 30 Days Active Social History Tobacco Use: Social History Observation Description Date Details (start date - stop date) Never Smoker NA - NA AUDIT-C (Standard) Question Answer Notes Did you have a drink contain ing alcohol in the past year? Yes How often did you have six o r more drinks on one occasion in the past year? Declined to specify (0 point) How many drinks did you have on a typical day when you were drinking in the past year? Declined to specify (0 point) How often did you have a dri nk containing alcohol in the past year? Declined to specify (0 point) Points 0 Interpretation Negative Tobacco Control (Standard) Question Answer Notes Tobacco use: Nonsmoker Problems Problem Type SNOMED Code ICD Code Onset Dates Problem Status W/U Status Risk Notes Problem Peripheral vascular disease (491871588) Other specified peripheral vascular diseases (I73.89) Active confirmed Vital Signs Heart Rate 106 /min 05/15/2024 Respiratory Rate 16 /min 05/15/2024 Height-cm 172.72 cm 05/15/2024 Blood pressure diastolic 71 mm Hg 05/15/2024 Weight-kg 184.16 kg 05/15/2024 Height 68 in 05/15/2024 Blood pressure systolic 150 mm Hg 05/15/2024 Weight 406 lbs 05/15/2024 BMI 61.73 kg/m2 05/15/2024 Encounters Encounter Location Date Provider Diagnosis [facility] [address] [place] [address] 05/15/2024 BRIGIDA YE Tinea unguium B35.1 and Other specified peripheral vascular diseases I73.89 Assessments Encounter Date Diagnosis (ICD Code) Assessment Notes Treatment Notes Treatment Clinical Notes Section Notes 05/15/2024 Tinea unguium (ICD-10 - B35.1) 05/15/2024 Other specified peripheral vascular diseases (ICD-10 - I73.89) We discussed preventative foot care. We discussed preventative foot hygiene. We instructed the patient on how to care for their feet, and to contact the office if any wounds develop, or signs of infection arise. The nails were debrided of all fungal material and debris. Debridement included a reduction in bulk of the nail by use of a sharp abrasive water jet cutter operator and/or rotary instrument. Reason for debridement include relief of pain, treatment of infection, temporary removal of an anatomic deformity such as onychauxis or onychocryptosis, exposure of subungual conditions for the purpose of treatment as well as diagnosis, and/or as a prophylactic measure to prevent further problems, such as subungual ulceration in an insensate patient with onychauxis. Antiseptic was applied. Debrided 10 nails. We reviewed fungal nail and skin infections. We discussed the prognosis and treatment options. We discouraged topical therapy with due to low success rate. We discussed oral medications and potential side effects such as liver and/or kidney toxicity. We discussed the need to take the medication for nine to twelve months. We discussed rate of recurrence after treatment. We also discussed the option of observation. Will treat conservatively at this time considering his comorbidities. Plan Of Treatment No Information Insurance Providers Payer Name Payer Address Payer Phone Subscriber Number Group Number Insured Name Patient Relationship to Insured Coverage Start Date Coverage End Date AETNA [facility] [address] [address] [facility] [place] [address] [id number] MATTHEW HINDS Self - patient is the insured Medical (General) History Medical History History ICD Code Hypertension Hyperlipidemia Arthritis
--- OUTSIDE RECORDS SUMMARY | 2024-10-07 09:40 | XMS_ITS ---
Author Organization [facility] Address [address] [place] [address] Care Team Providers Care Ironer Machine Name Role Phone BRIGIDA YE Unavailable [phone] Allergies No Known Allergies REASON FOR VISIT Palliation Medications Medication SIG (Take, Route, Frequency, Duration) Notes Start Date End Date Status Losartan Potassium 50 MG Oral for 30 Days Active Verapamil HCl ER 240 MG Oral for 30 Days Active Xarelto 20 MG Oral for 30 Days Active Furosemide 80 MG Oral for 30 Days Active Potassium Chloride Heidi ER 20 MEQ Oral for 30 Days Active Atorvastatin Calcium 10 MG Oral for 30 Days Active Social History [...] Status Risk Notes Problem Peripheral vascular disease (620533566) Other specified peripheral vascular diseases (I73.89) Active confirmed Vital Signs Blood pressure systolic 150 mm Hg 05/15/20 24 Blood pressure diastolic 71 mm Hg 024 Heart Rate 106 /min 05/15/2024 Respiratory Rate 16 /min 05/15/2024 Height 68 in 05/15/2024 Weight 406 lbs 05/15/2024 BMI 61.73 kg/m2 05/15/2024 Height-cm 172.72 cm 05/15/2024 Weight-kg 184.16 kg 05/15/2024 Encounters Encounter Location Date Provider Diagnosis [facility] [address] [place] [address] 05/15/2024 BRIGIDA YE Tinea unguium B35.1 and [...] the nail by use of a sharp damage cutter and/or rotary instrument. Reason for debridement include [...] time considering his comorbidities. Plan Of Treatment Treatment Notes Assessment Notes Other specified peripheral v ascular diseases We discussed preventative foot care. We discussed preventative foot hygiene. We instructed the patient on how to care for their feet, and to contact the office if any wounds develop, or signs of infection arise. The nails were debrided of all fungal material and debris. Debridement included a reduction in bulk of the nail by use of a sharp damage cutter and/or rotary instrument. Reason for debridement include [...] conservatively at this time considering his comorbidities. Next Appt Details Follow Up: 2 Months, Reason: palliation Progress Notes * MATTHEW HINDS ADOB:1960 (64 yo M)Acc No.[id number]:05/15/2024 Progress Notes Patient: MATTHEW AMARO Provider: Shelton Ye DPM :1960 A ge:64 Y S ex:Male Date:05/15/2024 Address:[address] [place], [place] [id number] Subjective: * Chief Complaints: * P alliation * HPI: N ails: The patient relates t o having difficulty trimming their nails, that all of their nails are thickened, that all of their nails are discolored. Relates his toenails are thick. Relates they have been that way for over a year. Denies much pain with them, except sometimes in shoes. * ROS: G eneral / Constitutional: Patient denies c hills, fatigue, fever, headache. ? E NT: Patient denies s ore throat, sinus pain. R espiratory: Patient denies c ough, chest pain, shortness of breath.? C ardiovascular: Patient denies p alpitations, chest pain with exertion.? G astrointestinal: Patient denies a bdominal pain, constipation, diarrhea, vomiting, nausea. * Medical History: * Surgical History: * Hospitalization/Major Diagno stic Procedure: * Social History: T obacco Use: T obacco Control (Standard) T obacco use: N onsmoker. D rug/Alcohol: D rugs H ave you used drugs other than those for medical reasons in the past 12 months??No. A VANIA-C (Standard) D id you have a drink containing alcohol in the past year? Y es, H ow often did you have six or more drinks on one occasion in the past year? D eclined to specify (0 point), H ow many drinks did you have on a typical day when you were drinking in the past year? D eclined to specify (0 point), H ow often did you have a drink containing alcohol in the past year? D eclined to specify (0 point), P oints 0 , I nterpretation?Negative. * Medications: T akingLosartan Potassium 50 MG Tablet Oral Atorvastatin Calcium 10 MG Tablet Oral Furosemide 80 MG Tablet Oral Xarelto 20 MG Tablet Oral Verapamil HCl ER 240 MG Tablet Extended Release Oral Potassium Chloride Heidi ER 20 MEQ Tablet Extended Release Oral Medication List reviewed and reconciled with the patientTaking Losartan Potassium 50 MG Tablet Oral Taking Atorvastatin Calcium 10 MG Tablet Oral Taking Furosemide 80 MG Tablet Oral Taking Xarelto 20 MG Tablet Oral Taking Verapamil HCl ER 240 MG Tablet Extended Release Oral Taking Potassium Chloride Heidi ER 20 MEQ Tablet Extended Release Oral Medication List reviewed and reconciled with the patient * Allergies: N .K.D.A.no[Allergies Verified] Objective: * Vitals: H t: 68 in, Wt:406lbs, BP:150/71mm Hg, HR:106/min, BMI:61.73Index, RR:16/min, Wt- k.16 kg, Ht-cm: 172.72 cm, Body Surface Area: 2.97. * Examination: D ermatologic: Skin findings: b ilateral, cool and dry, no open ulcerations or interdigital macerations. Edema m oderate, generalized. Nail pathology: d igits 1-5, bilateral, discolored, thickened, with onychodystrophy, with subungual debris. V ascular: Dorsalis pedis pulse: 1 /4, bilateral. Posterior tibial pulse: 0 /4, bilateral. Capillary refill: s lightly delayed, bilaterally. ? N eurologic: Gross sensation i ntact. C lass Findings: Class B findings (Q8) A bsent posterior tibial pulse right, Absent posterior tibial pulse left, Hair decreased or absent, Skin pigment discoloration, Nail thickening. M usculoskeletal: Joint range of motion: b ilateral, ankle, with decreased range of motion. Pain elicited with palpation of: n o noted pain on palpation. Pain elicited with range of motion: n o noted pain with range of motion. Assessment: * Assessment: 1. O ther specified peripheral vascular diseases - I73.89 (Primary) 2 . T inea unguium - B35.1 Plan: * Treatment: * Procedure Codes: 1 1721 DEBRIDE NAIL, 6 OR MORE, Modifiers: Q8 * Follow Up: 2 Months (Reason: palliation) * Billing Information: * Visit Code: 12432 Office Visit, New Pt., Level 2. Modifiers: 25 * Procedure Codes: 92330 DEBRIDE NAIL, 6 OR MORE. Modifiers: Q8 * RER LIVESTOCK Sign off status: Completed true * Provider: Shelton Ye DPM Date: 07/16/2023 Generated for Grayson holland/Darwin/Jose Alberto on: 0 10/07/2024 09:39 AM CDT History and Physical Notes * HPI (History of Present Illness) Category Sub-Category Detail Notes Category Not es Nails The patient relates to having di fficulty trimming their nails, that all of their nails are thickened, that all of their nails are discolored Relates his toenails are thick. Relates they have been that way for over a year. Denies much pain with them, except sometimes in shoes. Examination Category Sub-Category Detail Notes Category Not es Dermatologic Skin findings: bilateral, cool and dry, no open ulcerations or interdigital macerations Nail pathology: digits 1-5, bilatera l, discolored, thickened, with onychodystrophy, with subungual debris Edema moderate, generalize d Neurologic Gross sensation intact Musculoskeletal Joint range of motion: bilateral , ankle, with decreased range of motion Pain elicited with palpation of: no note d pain on palpation Pain elicited with range of motion: no n oted pain with range of motion Vascular Dorsalis pedis pulse: 1/4, bilateral Capillary refill: slightly delayed, bi laterally Posterior tibial pulse: 0/4, bilateral Class Findings Class B findings (Q8) Absent pos terior tibial pulse right, Absent posterior tibial pulse left, Hair decreased or absent, Skin pigment discoloration, Nail thickening
[2024-10-07 09:55] LABS: Basophils Absolute Auto 0.04 K/mm3 (0.00-0.10); Basophils Percent Auto 0.6 % (0.0-1.0); Eosinophils Absolute Auto 0.11 K/mm3 (0.02-0.50); Eosinophils Percent Auto 1.7 % (1.0-6.0); Hematocrit 44.7 % (40.0-54.0); Hemoglobin 13.5 g/dL (14.0-18.0); Immature Granulocyte Absolute 0.03 K/mm3 (0.00-0.00); Immature Granulocyte Percent A 0.5 % (0.0-0.0); Lymphocytes Absolute Auto 1.21 K/mm3 (1.10-4.50); Lymphocytes Percent Auto 18.2 % (18.0-42.0); Mean Corpuscular HGB Conc 30.2 g/dL (32-36); Mean Corpuscular Hemoglobin 28.4 pg (27.0-31.0); Mean Corpuscular Volume 93.9 fL (78.0-102.0); Mean Platelet Volume 10.5 fl (8.7-11.0); Monocytes Absolute Auto 0.56 K/mm3 (0.10-0.90); Monocytes Percent Auto 8.4 % (2.0-11.0); Neutrophils Percent Auto 70.6 % (50.0-70.0); Red Blood Count 4.76 M/mm3 (4.70-6.10); Red Cell Distribution Width 13.7 % (11.6-14.4); White Blood Count 6.7 K/mm3 (4.8-10.8)
[2024-10-07 10:14] LABS: Lactic Acid Reflex 1.8 mmol/L (0.4-2.0)
[2024-10-07 10:19] LABS: Immature Platelet Fraction Pct 10.2 % (1.0-7.0); Platelet Count Result 123 K/mm3 (150-420)
[2024-10-07 10:22] LABS: Alanine Aminotransferase 19 U/L (16-63); Albumin Level 3.3 g/dL (3.4-5.0); Alkaline Phosphatase 74 U/L (46-116); Anion Gap 7 mmol/L (4-12); Aspartate Amino Transferase 15 U/L (15-37); Bilirubin,Total 0.7 mg/dL (0.00-1.00); Blood Urea Nitrogen 16 mg/dL (7-18); Carbon Dioxide 31 mmol/L (21-32); Chloride 102 mmol/L (98-108); Estimated CRCL calculation 104 ml/min; Estimated Glomerular Filt Rate > 60; Glucose 125 mg/dL (70-99); NT Pro B Type Natriuretic Pept 426 pg/mL (0-125); Osmolality Calculated 292 mOsm/kg (285-295); Potassium 3.6 mmol/L (3.5-5.1); Sodium 140 mmol/L (136-145)
--- OUTSIDE RECORDS SUMMARY | 2024-10-07 10:31 | XMS_ITS | Encounter Summary ---
Author Organization [facility] Address [facility] [place] [address] Care Team Providers Care Economics Faculty Member Name Role Phone Doug Carrasco MD Primary Care Provider [phone] Gino Mena MD Unavailable [phone] Lisa Murillo GLASSWORKER- Primary Care Provider [phone] Deysi Rosa NP Primary Care Provider [phone] Jen Good APRN, NP-C Unavailable [phone] Lola Brewer MD Unavailable Montana Richards DIRECTOR CONTENT MARKETING Primary Care Provider [phone] Encounter Details Date Type Department Care Team (Late st Contact Info) Description 12/27/2015 Abstract [facility] [address] [place] [address] Abstract, Doc [facility] Social History Tobacco Use Types Packs/Day Years Used Date Smoking Tobacco: Never Sex and Gender Information Value Date Recorded Sex Assigned at Not on file Legal Sex Male 8:47 PM CDT Gender Identity Male 07/24/2021 4:54 AM HARNESS CLEANER Sexual Orientation Not on file documented as of this encounter Plan of Treatment Not on file documented as of this encounter Visit Diagnoses Not on filedocumented in this encounter Care Teams Economics Faculty Member Relationship Specialty Start Date End Date Doug Carrasco MD PCP - General INTERNAL MEDICINE 12/29/15 10/04/19 Lisa Murillo FNP- [address] [place] [address] PCP - General NURSE PRACTITIONER 10/05/19 08/26/23 Deysi Rosa NP 109 [facility] 3 [place] [address] PCP - General NURSE PRACTITIONER 08/27/23 12/03/23 Montana Richards NP [address] [place] [address] PCP - General NURSE PRACTITIONER 12/04/23 Gino Mena MD [address] [place] [address] [place] Histologic Technician CARDIOVASCULAR DISEASE 12/29/15 11/24/23 Jen Good APRN, DIRECTOR CONTENT MARKETING-C 619 [facility] [address] [place] [address] Advanced Practice Provider CARDIOLOGY 08/27/23 Lola Brewer MD [address] [place] [address] Consulting Physician CARDIOVASCULAR DISEASE 11/25/23 documented as of this encounter
--- OUTSIDE RECORDS SUMMARY | 2024-10-07 10:31 | XMS_ITS | Encounter Summary ---
Author Organization [facility] Address [address] [place] [address] Care Team Providers Care Dust Mixer Name Role Phone Doug Carrasco MD Primary Care Provider [phone] Gino Mena MD Unavailable [phone] Lisa Murillo CERTIFIED EXECUTIVE CHEF- Primary Care Provider [phone] Deysi Rosa NP Primary Care Provider [phone] Jen Good APRN, NP-C Unavailable [phone] Lola Brewer MD Unavailable Montana Richards TILE SORTER Primary Care Provider [phone] Encounter Details Date Type Department Care Team (Late st Contact Info) Description 01/25/2016 Abstract [facility] [address] [place] [address] Gino Mena MD [address] [place] [address] Social History Tobacco Use Types Packs/Day Years Used Date Smoking Tobacco: Never Sex and Gender Information Value Date Recorded Sex Assigned at Not on file Legal Sex Male 8:47 PM CDT Gender Identity Male 07/24/2021 4:54 AM THERAPIST RADIATION Sexual Orientation Not on file documented as of this encounter Plan of Treatment Not on file documented as of this encounter Visit Diagnoses Not on filedocumented in this encounter Care Teams Dust Mixer Relationship Specialty Start Date End Date Doug Carrasco MD PCP - General INTERNAL MEDICINE 12/29/15 10/04/19 Lisa Murillo CERTIFIED EXECUTIVE CHEF- [address] [place] [address] PCP - General NURSE PRACTITIONER 10/05/19 08/26/23 Deysi Rosa NP 109 [address] [facility] 3 [place] [address] PCP - General NURSE PRACTITIONER 08/27/23 12/03/23 Montana Richards NP [address] [place] [address] PCP - General NURSE PRACTITIONER 12/04/23 Gino Mena MD [address] [place] [address] [place] Driver Recruiter CARDIOVASCULAR DISEASE 12/29/15 11/24/23 Jen Good, CHILD CARE TEAM LEAD, TILE SORTER-C 619 [facility] [address] [place] [address] Advanced Practice Provider CARDIOLOGY 08/27/23 Lola Brewer MD [address] [place] [address] Consulting Physician CARDIOVASCULAR DISEASE 11/25/23 documented as of this encounter
--- OUTSIDE RECORDS SUMMARY | 2024-10-07 10:31 | XMS_ITS | Encounter Summary ---
Author Organization [facility] Address [address] [place] [address] Care Team Providers Care Pmo Project Manager Name Role Phone Jen Good APRN, NP-C Unavailable [phone] Lola Brewer MD Unavailable Montana Richards NP Primary Care Provider [phone] Encounter Details Date Type Department Care Team (Late st Contact Info) Description 03/24/2024 [place] Message [facility] ield [address] [place] [address] [facility] Results Social History Tobacco Use [...] CDT Gender Identity Male 07/24/2021 4:54 AM ALLOPATHIC DOCTOR Sexual Orientation Not on file documented as of this encounter Plan of Treatment Not on file documented as of this encounter Visit Diagnoses Not on filedocumented in this encounter Care Teams Pmo Project Manager Relationship Specialty Start Date End Date Montana Richards, FOIL STAMP OPERATOR [address] [place] [address] PCP - General NURSE PRACTITIONER 12/04/23 Jen Good, ETTA, FOIL STAMP OPERATOR-C [address] [facility] [address] [place] [address] Advanced Practice Provider CARDIOLOGY 08/27/23 Lola Brewer MD [address] [place] [address] Consulting Physician CARDIOVASCULAR DISEASE 11/25/23 documented as of this encounter
--- OUTSIDE RECORDS SUMMARY | 2024-10-07 10:31 | XMS_ITS | Clinical Summary ---
Author Organization [facility] Address [address] [place] [address] Care Team Providers Care Tire Fabric Impregnating Range Tender Name Role Phone Jen Good APRN, NP-C Unavailable [phone] Lola Brewer MD Unavailable Montana Richards NP Primary Care Provider [phone] Allergies Active Allergy Reactions Criticality Noted Date [...] Depression 07/03/2018 Chronic diastolic congestive heart failure ([facility]) 01/14/2016 Atrial fibrillation and flutter ([facility] ) 01/14/2016 Essential hypertension 01/14/2016 Obstructive sleep apnea syndrome 01/14/2016 Obesity 01/14/2016 Encounters Date Type Department Care Team Description 08/21/2024 Orders Only [facility] [address] [place] [address] Lola Brewer MD 08/21/2024 Orders Only [facility] [address] [place] [address] Lola Brewer MD from Last 3 Months [...] CDT Gender Identity Male 07/24/2021 4:54 AM [place] FLOOR LAYER Sexual Orientation Not on file Last Filed [...] 3:02 PM 09/09/2023 11:05 AM Care Teams Tire Fabric Impregnating Range Tender Relationship Specialty Start Date End Date Montana Richards SAVINGS TELLER [address] [place] [address] PCP - General NURSE PRACTITIONER 12/04/23 Jen Good, GRAVEL HAULER, SAVINGS TELLER-C 619 [facility] [address] [place] [address] Advanced Practice Provider CARDIOLOGY 08/27/23 Lola Brewer MD [address] [place] [address] Consulting Physician CARDIOVASCULAR DISEASE 11/25/23
[2024-10-07 11:01] LABS: Total Protein 7.1 g/dL (6.4-8.2)
--- NOTE | 2024-10-09 17:15 | PC.NURSE ---
blood preliminary, no growth
== END 2024-10-07 10:58 | disposition home or self-care (01) ==
PROVIDERS: Emergency Provider Internal Medicine Critical Care Medicine
DX: L03.115 Cellulitis of right lower limb (principal); I13.0 Hypertensive heart and chronic kidney disease with heart failure and stage 1 through stage 4 chronic kidney disease, or unspecified chronic kidney disease; N18.9 Chronic kidney disease, unspecified; I50.9 Heart failure, unspecified; I48.91 Unspecified atrial fibrillation
CPT/HCPCS: 36415; 80053; 83605; 83880; 85025; 85055; 87040; 99283

== ENCOUNTER 2025-01-18 09:09 | Outpatient (CLI) | payer OTHER, SELFPAY ==
--- OUTSIDE RECORDS SUMMARY | 2025-01-18 09:39 | XMS_ITS ---
Author Organization [facility] Address [address] [place] [address] Care Team Providers Care Shoe Salesperson Name Role Phone BRIGIDA YE Unavailable [phone] Encounters Encounter Location Date Provider Diagnosis [address] [address] 08/14/2024 BRIGIDA YE Plan Of Treatment No Information Progress Notes * MATTHEW HINDS ADOB:1960 (64 yo M)Acc No.[id number]:08/14/2024 Patient: Edmund LAVONMATTHEW Provider: Shelton Ye DPM :1960 A ge:64 Y S ex:Male Date:08/14/2024 Address:[address] [facility] Subjective: * Chief Complaints: * * Medical History: Objective: * Vitals: Assessment: Plan: * Treatment: * Billing Information: * Visit Code: * Procedure Codes: * Electronic signature of MARKO YE DPM on 01/18/2025 at 09:39 AM CDT Sign off status: Pending * Provider: Shelton Ye DPM Date: 08/14/2024 Generated for Grayson holland/Darwin/Jose Alberto on: 01/18/2025 09:39 AM CDT
--- OUTSIDE RECORDS SUMMARY | 2025-01-18 09:39 | XMS_ITS | Patient Health Record ---
Author Organization [facility] Address [address] [place] [address] Care Team Providers Care Collection Systems Worker Name Role Phone BRIGIDA YE Unavailable [phone] Allergies No Known Allergies Reason For Referral No Information Medications Medication SIG (Take, Route, Frequency, Duration) Notes Start Date End Date Status Losartan Potassium 50 MG Oral; Duration: 30 Days Active Verapamil HCl ER 240 MG Oral; Duration: 30 Days Active Xarelto 20 MG Oral; Duration: 30 Days Active Furosemide 80 MG Oral; Duration: 30 Days Active Atorvastatin Calcium 10 MG Oral; Duration: 30 Days Active Potassium Chloride Heidi ER 20 MEQ Oral; Duration: 30 Days Acti ve Social History Tobacco Use: Social History Observation [...] Status Risk Notes Problem Peripheral vascular disease (072697560) Other specified peripheral vascular diseases (I73.89) Active confirmed Vital Signs Heart Rate 106 /min 05/15/2024 Respiratory Rate 16 /min 05/15/2024 Height-cm 172.72 cm 05/15/2024 Blood pressure diastolic 71 mm Hg 05/15/2024 Weight-kg 184.16 kg 05/15/2024 Height 68 in 05/15/2024 Blood pressure systolic 150 mm Hg 05/15/2024 Weight 406 lbs 05/15/2024 BMI 61.73 kg/m2 05/15/2024 Encounters Encounter Location Date Provider Diagnosis [facility] [address] [place] [address] 05/15/2024 BRIGIDA YE Tinea unguium B35.1 and [...] the nail by use of a sharp upper leather cutter and/or rotary instrument. Reason for debridement [...] Coverage Start Date Coverage End Date AETNA [facility] [address] [address] [place], [place] [id number] MATTHEW HINDS Self - patient is the insured Medical (General) History Medical History History ICD Code Hypertension Hyperlipidemia Arthritis
--- OUTSIDE RECORDS SUMMARY | 2025-01-18 09:40 | XMS_ITS | Encounter Summary ---
Author Organization [facility] Address [address] [place] [address] Care Team Providers Care Electrician Apprentice Name Role Phone Doug Carrasco MD Primary Care Provider [phone] Gino Mena MD Unavailable [phone] Lisa Murillo PECAN SHELLER- Primary Care Provider [phone] Deysi Rosa NP Primary Care Provider [phone] Jen Good APRN, NP-C Unavailable [phone] Lola Brewer MD Unavailable Montana Richards LABEL REWINDER Primary Care Provider [phone] Encounter Details Date Type Department Care Team (Late st Contact Info) Description 01/25/2016 Abstract [facility] [address] [place] [address] Gino Mena MD [address] [place] [address] Social History Tobacco Use Types Packs/Day Years Used Date Smoking Tobacco: Never Sex and Gender Information Value Date Recorded Sex Assigned at Not on file Legal Sex Male 8:47 PM CDT Gender Identity Male 07/24/2021 4:54 AM SPLICER HELPER Sexual Orientation Not on file documented as of this encounter Plan of Treatment Not on file documented as of this encounter Visit Diagnoses Not on filedocumented in this encounter Care Teams Electrician Apprentice Relationship Specialty Start Date End Date Doug Carrasco MD PCP - General INTERNAL MEDICINE 12/29/15 10/04/19 Lisa Murillo PECAN SHELLER- [address] [place] [address] PCP - General NURSE PRACTITIONER 10/05/19 08/26/23 Deysi Rosa NP [address] [facility] 3 [place] [address] PCP - General NURSE PRACTITIONER 08/27/23 12/03/23 Montana Richards NP [address] [place] [address] PCP - General NURSE PRACTITIONER 12/04/23 Gino Mena MD [address] [place] [address] [place] Consumer Relations Complaint Clerk CARDIOVASCULAR DISEASE 12/29/15 11/24/23 Jen Good, SALES PLANNING COORDINATOR, LABEL REWINDER-C 619 [facility] [address] [place] [address] Advanced Practice Provider CARDIOLOGY 08/27/23 Lola Brewer MD [address] [place] [address] Consulting Physician CARDIOVASCULAR DISEASE 11/25/23 documented as of this encounter
--- OUTSIDE RECORDS SUMMARY | 2025-01-18 09:40 | XMS_ITS | Encounter Summary ---
Author Organization [facility] Address Critical access hospital[address] [place] [address] Care Team Providers Care Manager Disaster Recovery Name Role Phone Doug Carrasco MD Primary Care Provider [phone] Gino Mena MD Unavailable [phone] Lisa Murillo INTELLIGENCE INTERN- Primary Care Provider [phone] Deysi Rosa NP Primary Care Provider [phone] Jen Good APRN, NP-C Unavailable [phone] Lola Brewer MD Unavailable Montana Richards TRANSPORTATION TECHNICIAN Primary Care Provider [phone] Encounter Details Date Type Department Care Team (Late st Contact Info) Description 12/27/2015 Abstract [facility] [address] [place] [address] Abstract, Doc [facility] Social History Tobacco Use Types Packs/Day Years Used Date Smoking Tobacco: Never Sex and Gender Information Value Date Recorded Sex Assigned at Not on file Legal Sex Male 8:47 PM CDT Gender Identity Male 07/24/2021 4:54 AM HUNTING SALES ASSOCIATE Sexual Orientation Not on file documented as of this encounter Plan of Treatment Not on file documented as of this encounter Visit Diagnoses Not on filedocumented in this encounter Care Teams Manager Disaster Recovery Relationship Specialty Start Date End Date Doug Carrasco MD PCP - General INTERNAL MEDICINE 12/29/15 10/04/19 Lisa Murillo FNP- [address] [place] [address] PCP - General NURSE PRACTITIONER 10/05/19 08/26/23 Deysi Rosa NP 109 [facility] 3 [place] [address] PCP - General NURSE PRACTITIONER 08/27/23 12/03/23 Montana Richards NP [address] [place] [address] PCP - General NURSE PRACTITIONER 12/04/23 Gino Mena MD [address] [place] [address] Cade Aba Tutor CARDIOVASCULAR DISEASE 12/29/15 11/24/23 Jen Good APRN, TRANSPORTATION TECHNICIAN-C 619 [facility] [address] [place] [address] Advanced Practice Provider CARDIOLOGY 08/27/23 Lola Brewer MD [address] [place] [address] Consulting Physician CARDIOVASCULAR DISEASE 11/25/23 documented as of this encounter
== END 2025-01-18 09:10 | disposition home or self-care (01) ==
LOC: CHSAUDIO 09:12
PROVIDERS: PCP Nurse Practitioner Family; Visit Provider Nurse Practitioner Family
DX: H91.93 Unspecified hearing loss, bilateral (principal)
CPT/HCPCS: 92557; 92567

== ENCOUNTER 2025-02-22 20:52 | Emergency (ER) | payer OTHER, SELFPAY ==
--- OUTSIDE RECORDS SUMMARY | 2024-08-14 05:00 | XMS_ITS ---
Author Organization [facility] Address [address] [place] [address] Care Team Providers Care Buffer Inflated Pad Name Role Phone BRIGIDA YE Unavailable [phone] Encounters Encounter Location Date Provider Diagnosis [address] [address] 08/14/2024 BRIGIDA YE Plan Of Treatment No Information Progress Notes * MATTHEW HINDS ADOB:1960 (65 yo M)Acc No.[id number]:08/14/2024 Patient: Edmund LAVONMATTHEW Tita Provider: Shelton Ye DPM :1960 A ge:64 Y S ex:Male Date:08/14/2024 Address:[address] [facility] Subjective: * Chief Complaints: * * Medical History: Objective: * Vitals: Assessment: Plan: * Treatment: * Billing Information: * Visit Code: * Procedure Codes: * Electronic signature of MARKO YE DPM on 02/22/2025 at 08:54 PM CDT Sign off status: Pending * Provider: Shelton Ye DPM Date: 08/14/2024 Generated for Grayson holland/Darwin/Jose Alberto on: 0 02/22/2025 08:54 PM CDT
[2025-02-22] VITALS (26 sets, daily range): BP systolic 111–146; BP diastolic 58–93; PULSE 82–113; RESP 10–19; TEMP 35.7; O2SAT 92–97
--- NOTE | ~2025-02-22 | XR_ITS ---
XR chest 1V portable 02/22/2025 21:23 Indication: Chest pain Procedure: AP portable chest Comparison: 02/18/2021 Findings: Cardiomegaly with mild interstitial edema. No significant effusion. No pneumothorax. No acute osseous abnormality. Impression: 1: Cardiomegaly with mild interstitial edema. Reviewed, dictated and finalized at location O. Impression: 1: Cardiomegaly with mild interstitial edema.
--- OUTSIDE RECORDS SUMMARY | 2025-02-22 20:54 | XMS_ITS | Clinical Summary ---
Author Organization [facility] Address [address] [place] [address] Care Team Providers Care Termination Clerk Name Role Phone Jen Good APRN, NP-C Unavailable [phone] Lola Brewer MD Unavailable Montana Richards NP Primary Care Provider [phone] Allergies Active Allergy Reactions Criticality Noted Date Comments [place] (Solidago) Unknown 12/27/2015 Penicillins Unknown 12/01/2015 Medications verapamil 240 MG 24 hr capsuleIndicatio [...] Depression 07/03/2018 Chronic diastolic congestive heart failure ([facility]) 01/14/2016 Atrial fibrillation and flutter ([facility] ) 01/14/2016 Essential hypertension 01/14/2016 Obstructive sleep apnea syndrome 01/14/2016 Obesity 01/14/2016 Family History Medical History Relation Comments Coronary [...] CDT Gender Identity Male 07/24/2021 4:54 AM MEDICAL REPRESENTATIVE Sexual Orientation Not on file Last Filed [...] 2:57 PM CDT Height 172.7 cm (5' 8) 01/24/2024 2:57 PM CDT Body Mass Index [...] COVID-19 Vaccine (1 - 2023-2 5 season) 2025 Meningococcal B Vaccine Aged Out No l onger eligible based on patient's age to complete this topic Meningococcal Vaccine Aged Out No weston rashid eligible based on patient's age to complete this topic RSV Immunizations Under 20 Months Aged Out No longer eligible based on patient's age to complete this topic Insurance [facility] Advance Directives * Full Code (Latest Code Status on File) Date Activated Date Inactivated Comments 09/09/2023 11:19 AM * Full Code Date Activated Date Inactivated Comments 09/08/2023 3:02 PM 09/09/2023 11:05 AM Care Teams Termination Clerk Relationship Specialty Start Date End Date Montana Richards NP [address] [place] [address] PCP - General NURSE PRACTITIONER 12/04/23 Jen Good APRN, TANDEM OPERATOR-C [address] [facility] [address] [place] [address] Advanced Practice Provider CARDIOLOGY 08/27/23 Lola Brewer MD [address] [place] [address] Consulting Physician CARDIOVASCULAR DISEASE 11/25/23
--- NOTE | 2025-02-22 20:55 | ED.CHESTPAIN ---
HPI - Chest Pain General Chief Complaint: Chest Pain Stated Complaint: chest pain Time Seen by Provider: 02/22/25 20:55 Source: patient Mode of arrival: EMS Limitations: no limitations History of Present Illness HPI narrative: 65-year-old with a history of atrial fibrillation on Xarelto here with a complains of midsternal chest pain which has been ongoing for last day or so. Patient states the pain is constant in nature denies any cough or shortness of breath. No history of fever or chills. No previous history of CAD. MD complaint: chest pain Onset (ago): day(s) (1) Timing of current episode: constant Onset: during rest Pain location: substernal Pain radiation: none Severity: moderate Quality: aching Relieving factors: nothing Exacerbating factors: nothing Risk Factors Coronary artery disease risk factors: none Related Data Home Medications ?Medication ?Instructions ?Recorded ?Confirmed ?Last Taken ?Type Adult One Daily Multivitamin 1 caplet BYMOUTH DAILY 02/18/21 10/14/23 Unknown History atorvastatin 10 mg tablet 10 mg PO DAILY 02/18/21 10/14/23 Unknown History cholecalciferol (vitamin D3) 50 50 mcg PO DAILY 02/18/21 10/14/23 Unknown History mcg (2,000 unit) capsule (Vitamin D3) furosemide 80 mg tablet 80 mg PO DAILY 02/18/21 10/14/23 Unknown History omega-3 fatty acids-vitamin E 1 cap PO DAILY 02/18/21 10/14/23 Unknown History 1,000 mg capsule potassium chloride 20 mEq 20 meq PO DAILY 02/18/21 10/14/23 Unknown History tablet,extended release(part/cryst) rivaroxaban 20 mg tablet (Xarelto) 20 mg PO DAILY 02/18/21 10/14/23 Unknown History verapamil 240 mg tablet,extended 240 mg PO BID 02/18/21 10/14/23 Unknown History release losartan 50 mg tablet 50 mg DAILY 10/14/23 10/14/23 Unknown History Allergies Allergy/AdvReac Type Severity Reaction Status Date / Time Penicillins Allergy Unknown Verified 02/22/25 21:33 Review of Systems Review of Systems: All systems reviewed & are unremarkable except as noted in HPI and below Constitutional: Constitutional: Reports no additional constitutional complaints Eyes: Eyes: Reports no additional eye complaints ENT: Reports system reviewed and no additional complaints, except as documented Cardiovascular: Cardiovascular: Reports no additional cardiovascular complaints Respiratory: Respiratory: Reports no additional respiratory complaints Gastrointestinal: Gastrointestinal: Reports no additional gastrointestinal complaints Genitourinary: Genitourinary: Reports no additional male genitourinary complaints [facility] Past Medical History Medical History HTN (hypertension) CHF (congestive heart failure) Afib Exam Narrative: GENERAL: Well-appearing Morbidly obese and in no acute distress. HEAD: Normocephalic, atraumatic. EYES: PERRLA and EOMI. ENT: Nares clear, no rhinorrhea or epistaxis. Mucous membranes moist. NECK: Supple. CHEST: Clear to auscultation. No respiratory distress. HEART: Regular rate and rhythm. No murmur heard. Normal peripheral pulses. ABDOMEN: Soft, nontender, nondistended, normal active bowel sounds. EXTREMITIES: Normal range of motion. No edema. SKIN: Warm, dry, no rash. NEURO: No focal deficits. Alert and oriented x3. PSYCH: Normal mood and affect. Course Course Emergency Course: notified patient about the lab work. Patient states that his friend has completely resolved he feels comfortable going home. Vital Signs Vital signs: Vital Signs Oxygen Delivery Room Air 02/22/25 20:52 Temperature 35.7 C L 02/22/25 20:53 Pulse Rate 92 02/22/25 22:01 Respiratory Rate 14 02/22/25 22:01 Blood Pressure 145/93 H 02/22/25 22:01 Pulse Oximetry 94 02/22/25 22:01 Oxygen Delivery Room Air 02/22/25 21:15 MDM - Chest Pain Differential Diagnosis Differential diagnosis: Likely pneumothorax, unstable angina pectoris, atypical chest pain and costochondritis Medical Records Data Attestation: I reviewed the patient's medical records. Lab Data 02/22/25 21:11 02/22/25 21:11 Labs: Lab Results 02/22/25 Range/Units 21:11 WBC 10.3 (4.8-10.8) K/mm3 RBC 4.59 L (4.70-6.10) M/mm3 Hgb 13.5 L (14.0-18.0) g/dL Hct 43.2 (40.0-54.0) % MCV 94.1 (78.0-102.0) fL MCH 29.4 (27.0-31.0) pg MCHC 31.3 L (32-36) g/dL RDW 13.8 (11.6-14.4) % Plt Count 202 (150-420) K/mm3 MPV 9.6 (8.7-11.0) fl Immature Gran % (Auto) 0.3 H (0.0-0.0) % Neut % (Auto) 87.6 H (50.0-70.0) % Lymph % (Auto) 6.9 L (18.0-42.0) % [place] % (Auto) 4.8 (2.0-11.0) % Eos % (Auto) 0.1 L (1.0-6.0) % Baso % (Auto) 0.3 (0.0-1.0) % Lymph # (Auto) 0.71 L (1.10-4.50) K/mm3 [place] # (Auto) 0.50 (0.10-0.90) K/mm3 Eos # (Auto) 0.01 L (0.02-0.50) K/mm3 Baso # (Auto) 0.03 (0.00-0.10) K/mm3 Abs Immat Gran (auto) 0.03 H (0.00-0.00) K/mm3 Absolute Neuts (auto) 9.05 H (1.70-7.20) K/mm3 Absolute Nucleated RBC 0.00 (0.00-0.00) K/mm3 Nucleated RBC % 0.0 (0-0.0) % Sodium 142 (137-145) mmol/L Potassium 4.0 (3.4-5.0) mmol/L Chloride 104 (98-107) mmol/L Carbon Dioxide 29 (22-30) mmol/L Anion Gap 9 (4-12) mmol/L BUN 14 (9-20) mg/dL Creatinine 0.75 (0.7-1.3) mg/dL Estim Creat Clear Calc 142 ml/min Estimated GFR > 60 (59 - ) Glucose 180 H (65-110) mg/dL Calculated Osmolality 299 H (285-295) mOsm/kg Calcium 9.2 (8.4-10.2) mg/dL Total Bilirubin 1.8 H (0.2-1.3) mg/dL AST 258 H (17-59) U/L ALT 158 H (6-50) U/L Alkaline Phosphatase 130 H (38-126) U/L Troponin I < 0.012 (0.000-0.034) ng/mL NT-Pro-B Natriuret Pep 505 H (19.9-100) pg/mL Total Protein 8.1 (6.3-8.2) g/dL Albumin 4.1 (3.5-5.1) g/dL Imaging Data Radiologist's impression: ITS Impressions Chest X-Ray 02/22/25 21:36 Impression: 1: Cardiomegaly with mild interstitial edema. ECG Data EKG #1: ECG completion date: 02/22/25 ECG completion time: 21:03 EKG Interpretation: normal rate (78), atrial fibrillation and NL axis Discharge Plan Discharge Clinical Impression: Chest pain Qualifiers: Chest pain type: unspecified Qualified Code(s): R07.9 - Chest pain, unspecified Patient Disposition: Home Condition: Stable Instructions: Chest Pain (ED) Additional Instructions: continue home medications, follow with your doctor Patient Language: Ukrainian Prescriptions: No Action losartan 50 mg tablet 50 mg DAILY sulfamethoxazole-trimethoprim [Bactrim DS] 800-160 mg tablet 1 tablet PO Q12H 10 Days Qty: 20 0RF sulfamethoxazole-trimethoprim [Bactrim DS] 800-160 mg tablet 1 tablet PO Q12H Qty: 14 0RF Adult One Daily Multivitamin 1 caplet BYMOUTH DAILY atorvastatin 10 mg tablet 10 mg PO DAILY potassium chloride 20 mEq tablet,ER particles/crystals 20 meq PO DAILY furosemide 80 mg tablet 80 mg PO DAILY verapamil 240 mg tablet extended release 240 mg PO BID Fish Oil 1,000 mg Capsule 1 cap PO DAILY cholecalciferol (vitamin D3) [Vitamin D3] 50 mcg (2,000 unit) Capsule 50 mcg PO DAILY Xarelto 20 mg tablet 20 mg PO DAILY Follow-up/Referrals: UNKNOWN,DOCTOR [Primary Care Provider]
--- OUTSIDE RECORDS SUMMARY | 2025-02-22 20:55 | XMS_ITS | Encounter Summary ---
Author Organization [facility] Address [address] [place] [address] Care Team Providers Care Search Director Name Role Phone Doug Carrasco MD Primary Care Provider [phone] Gino Mena MD Unavailable [phone] Lisa Murillo SLAB LIFTING ENGINEER- Primary Care Provider [phone] Deysi Rosa NP Primary Care Provider [phone] Jen Good APRN, NP-C Unavailable [phone] Lola Brewer MD Unavailable Montana Richards INCIDENT RESPONSE LEAD Primary Care Provider [phone] Encounter Details Date Type Department Care Team (Late st Contact Info) Description 01/25/2016 Abstract [facility] [address] [place] [address] Gino Mena MD [address] [place] [address] Social History Tobacco Use Types Packs/Day Years Used Date Smoking Tobacco: Never Sex and Gender Information Value Date Recorded Sex Assigned at Not on file Legal Sex Male 8:47 PM CDT Gender Identity Male 07/24/2021 4:54 AM UPHOLSTERER APPRENTICE Sexual Orientation Not on file documented as of this encounter Plan of Treatment Not on file documented as of this encounter Visit Diagnoses Not on filedocumented in this encounter Care Teams Search Director Relationship Specialty Start Date End Date Doug Carrasco MD PCP - General INTERNAL MEDICINE 12/29/15 10/04/19 Lisa Murillo SLAB LIFTING ENGINEER- [address] [place] [address] PCP - General NURSE PRACTITIONER 10/05/19 08/26/23 Deysi Rosa NP [address] [facility] 3 [place] [address] PCP - General NURSE PRACTITIONER 08/27/23 12/03/23 Montana Richards NP [address] [place] [address] PCP - General NURSE PRACTITIONER 12/04/23 Gino Mena MD [address] [place] [address] [place] Wire Walker CARDIOVASCULAR DISEASE 12/29/15 11/24/23 Jen Good, MANTEL CRAFTSMAN, INCIDENT RESPONSE LEAD-C [address] [facility] [address] [place] [address] Advanced Practice Provider CARDIOLOGY 08/27/23 Lola Brewer MD [address] [place] [address] Consulting Physician CARDIOVASCULAR DISEASE 11/25/23 documented as of this encounter
--- OUTSIDE RECORDS SUMMARY | 2025-02-22 20:55 | XMS_ITS | Patient Health Record ---
Author Organization [facility] Address [address] [place] [address] Care Team Providers Care Skid Road Worker Name Role Phone BRIGIDA YE Unavailable [phone] Allergies No Known Allergies Reason For Referral [...] Status Risk Notes Problem Peripheral vascular disease (057174295) Other specified peripheral vascular diseases (I73.89) Active confirmed Vital Signs Heart Rate 106 /min 05/15/2024 Respiratory Rate 16 /min 05/15/2024 Height-cm 172.72 cm 05/15/2024 Blood pressure diastolic 71 mm Hg 05/15/2024 Weight-kg 184.16 kg 05/15/2024 Height 68 in 05/15/2024 Blood pressure systolic 150 mm Hg 05/15/2024 Weight 406 lbs 05/15/2024 BMI 61.73 kg/m2 05/15/2024 Encounters Encounter Location Date Provider [facility] [address] [place] [address] 05/15/2024 BRIGIDA YE Tinea unguium B35.1 and [...] the nail by use of a sharp hoop cutter and/or rotary instrument. Reason for debridement [...] Coverage Start Date Coverage End Date AETNA [facility] [address] [address] [place], [place] [id number] MATTHEW HINDS Self - patient is the insured Medical (General) History Medical History History ICD Code Hypertension Hyperlipidemia Arthritis
--- OUTSIDE RECORDS SUMMARY | 2025-02-22 20:55 | XMS_ITS | Encounter Summary ---
Author Organization [facility] Address [facility] [place] [address] Care Team Providers Care Senior Director Name Role Phone Doug Carrasco MD Primary Care Provider [phone] Gino Mena MD Unavailable [phone] Lisa Murillo MAIL DISTRIBUTION SCHEME EXAMINER- Primary Care Provider [phone] Deysi Rosa NP Primary Care Provider [phone] Jen Good APRN, NP-C Unavailable [phone] Lola Brewer MD Unavailable Montana Richards DIVISION LEADER Primary Care Provider [phone] Encounter Details Date Type Department Care Team (Late st Contact Info) Description 12/27/2015 Abstract [facility] [address] [place] [id number] Abstract, Doc [facility] Social History Tobacco Use Types Packs/Day Years Used Date Smoking Tobacco: Never Sex and Gender Information Value Date Recorded Sex Assigned at Not on file Legal Sex Male 8:47 PM CDT Gender Identity Male 07/24/2021 4:54 AM SURGERY MANAGER Sexual Orientation Not on file documented as of this encounter Plan of Treatment Not on file documented as of this encounter Visit Diagnoses Not on filedocumented in this encounter Care Teams Senior Director Relationship Specialty Start Date End Date Doug Carrasco MD PCP - General INTERNAL MEDICINE 12/29/15 10/04/19 Lisa Murillo FNP- [address] [place] [address] PCP - General NURSE PRACTITIONER 10/05/19 08/26/23 Deysi Rosa NP 109 [facility] 3 [place] [address] PCP - General NURSE PRACTITIONER 08/27/23 12/03/23 Montana Richards NP [address] [place] [address] PCP - General NURSE PRACTITIONER 12/04/23 Gino Mena MD [address] [place] [phone] [place] Shipping Clerk/Admin CARDIOVASCULAR DISEASE 12/29/15 11/24/23 Jen Good APRN, DIVISION LEADER-C 619 [facility] [address] [place] [address] Advanced Practice Provider CARDIOLOGY 08/27/23 Lola Brewer MD [address] [place] [address] Consulting Physician CARDIOVASCULAR DISEASE 11/25/23 documented as of this encounter
--- NOTE | 2025-02-22 20:56 | ECG_ITS ---
Test Date: 2025-02-22 21:03:55 Measurements Intervals [place] Rate: 78 P: 0 ME: 0 QRS: 82 QRSD: 104 T: 58 QT: 394 QTc: 451 Interpretive Statements ATRIAL FIBRILLATION ABNORMAL RHYTHM ECG No previous ECG available for comparison Electronically Signed On 02-23-2025 12:43:29 CDT by Joe Riojas M.D.
[2025-02-22 21:15] LABS: Hematocrit 43.2 % (40.0-54.0); Hemoglobin 13.5 g/dL (14.0-18.0); Immature Granulocyte Percent A 0.3 % (0.0-0.0); Lymphocytes Absolute Auto 0.71 K/mm3 (1.10-4.50); Mean Corpuscular HGB Conc 31.3 g/dL (32-36); Mean Corpuscular Hemoglobin 29.4 pg (27.0-31.0); Mean Corpuscular Volume 94.1 fL (78.0-102.0); Nucleated Red Blood Cells Absolute Auto 0.00 K/mm3 (0.00-0.00); Nucleated Red Blood Cells Perc 0.0 % (0-0.0); Platelet Count Result 202 K/mm3 (150-420); Red Blood Count 4.59 M/mm3 (4.70-6.10); White Blood Count 10.3 K/mm3 (4.8-10.8)
[2025-02-22 21:31] LABS: Alanine Aminotransferase 158 U/L (6-50); Albumin Level 4.1 g/dL (3.5-5.1); Alkaline Phosphatase 130 U/L (38-126); Anion Gap 9 mmol/L (4-12); Aspartate Amino Transferase 258 U/L (17-59); Bilirubin,Total 1.8 mg/dL (0.2-1.3); Blood Urea Nitrogen 14 mg/dL (9-20); Calcium 9.2 mg/dL (8.4-10.2); Carbon Dioxide 29 mmol/L (22-30); Chloride 104 mmol/L (98-107); Estimated CRCL calculation 142 ml/min; Estimated Glomerular Filt Rate > 60; Glucose 180 mg/dL (65-110); Osmolality Calculated 299 mOsm/kg (285-295); Potassium 4.0 mmol/L (3.4-5.0); Sodium 142 mmol/L (137-145); Total Protein 8.1 g/dL (6.3-8.2)
--- NOTE | 2025-02-22 21:38 | PC.NURSE ---
pt updated, awaiting results of blood work. call light within reach.
[2025-02-22 21:42] LABS: NT Pro B Type Natriuretic Pept 505 pg/mL (19.9-100); Troponin I < 0.012 ng/mL (0.000-0.034)
[2025-02-22] MEDS: ONDANSETRON HCL ODT 4 MG TABLET PO (21:58)
--- NOTE | 2025-02-22 22:01 | PC.NURSE ---
Pt medicated for nausea, see MAR and small sip of ice water given. VSS. call light within reach.
--- NOTE | 2025-02-22 23:26 | PC.NURSE ---
Pt ambulatory to bathroom at this time with assist from cane.
--- NOTE | 2025-02-23 00:01 | PC.NURSE ---
sweeper [employer] at bedside for blood draw of repeat troponin. pt update provided. awaiting results. call light within reach.
[2025-02-23 00:13] VITALS: RESP 14; O2SAT 93
[2025-02-23 00:17] VITALS: RESP 14; O2SAT 94
[2025-02-23 00:28] LABS: Troponin I < 0.012 ng/mL (0.000-0.034)
[2025-02-23 00:30] VITALS: BP 146/89; PULSE 97; RESP 15; TEMP 36.1; O2SAT 95
== END 2025-02-23 00:45 | disposition home or self-care (01) ==
PROVIDERS: Emergency Provider Family Medicine
DX: R07.9 Chest pain, unspecified (principal); I48.91 Unspecified atrial fibrillation; I11.0 Hypertensive heart disease with heart failure; I50.9 Heart failure, unspecified; Z79.01 Long term (current) use of anticoagulants
CPT/HCPCS: 36415; 71045; 80053; 83880; 84484; 85025; 93005; 99284; A9270